=== PATIENT | male | born 1975 | race Caucasian/White ===

== ENCOUNTER → 2017-07-31 | Outpatient (CLI) | payer OTHER ==
[~2017-07-31] MED LIST: DIATRIZOATE MEGL/DIATRIZOA SOD 30 ML BTL PO ONE; IOPAMIDOL 370 MG/ML 200 ML INFUS..BTL INJ ONE; SODIUM CHLORIDE 0.9% 50ML 50 ML ONE
--- NOTE | 2017-07-31 20:06 | Diagnostic Imaging Report ---
EXAM: CT Abdomen and Pelvis WITH contrast INDICATION: Lower abdominal pain. History of diverticulitis. COMPARISON: None. TECHNIQUE: Abdomen and pelvis were scanned utilizing a multidetector helical scanner from the lung base to the ischial tuberosities after administration of IV contrast. Coronal and sagittal reformations were obtained. Routine protocol was performed. Scan was performed when during portal venous phase. IV CONTRAST: 100 mL of Isovue-370 ORAL CONTRAST: Gastroview RADIATION DOSE: Total DLP: 444.57 mGy*cm Estimated effective dose: DLP x 0.015 mSv COMPLICATIONS: None FINDINGS: LINES and TUBES: None. LOWER THORAX: The lungs and airways are normal. HEPATOBILIARY: Diffuse hepatic steatosis. No focal hepatic lesions. No biliary ductal dilation. GALLBLADDER: No radio-opaque stones or sludge. No wall thickening. SPLEEN: No splenomegaly. PANCREAS: No focal masses or ductal dilatation. ADRENALS: No adrenal nodules KIDNEYS/URETERS: There is a 3 mm stone at the left ureterovesical junction with moderate left hydronephrosis and hydroureter. Delayed enhancement of the left kidney with left perinephric stranding. No cystic or solid mass lesions. No hydronephrosis, stone, or solid renal mass seen in the right kidney GI TRACT: No abnormal distention, wall thickening, or evidence of bowel obstruction. Sigmoid diverticulosis without evidence of acute diverticulitis. The appendix is normal. PELVIC ORGANS/BLADDER: Unremarkable. LYMPH NODES: No lymphadenopathy. VESSELS: Unremarkable. PERITONEUM / RETROPERITONEUM: No free air or fluid. BONES: Unremarkable. SOFT TISSUES: Unremarkable. IMPRESSION: 1. There is a 3 mm stone at the left ureterovesical junction with moderate left hydronephrosis and hydroureter. 2. Sigmoid diverticulosis. No CT evidence of acute diverticulitis. Signed by: Dr. Bharat Villalta M.D. on 07/31/2017 8:03 PM
== END ==
LOC: EDSEX 17:16 → CT 17:16
PROVIDERS: ATTEND Internal Medicine Gastroenterology
DX: K57.92 Diverticulitis of intestine, part unspecified, without perforation or abscess without bleeding (principal)
CPT/HCPCS: 74177; Q9967